=== PATIENT | female | born 1980 | race Caucasian/White ===

== ENCOUNTER 2020-07-19 09:51 | Emergency (ER) | payer OTHER ==
[~2020-07-19] VITALS: Ht 165.1 cm; Wt 55.0 kg
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
[2020-07-19 10:50] LABS: BASOPHILS % (AUTO) 1 % (0-1); EOSINOPHILS % (AUTO) 1 % (1-7); LYMPHOCYTES % (AUTO) 25 % (22-44); MEAN CORPUSCULAR HEMOGLOBIN 31.4 pg (27.0-34.8); MEAN CORPUSCULAR HGB CONC 34.4 g/dL (32.4-35.8); MEAN PLATELET VOLUME 8.1 fL (7.4-10.4); MONOCYTES % (AUTO) 6 % (2-9); NEUTROPHILS % (AUTO) 68 % (42-75); PLATELET COUNT 222 x10^3/uL (130-400); RED BLOOD COUNT 4.54 x10^6/uL (3.82-5.3)
[2020-07-19 10:51] LABS: MD NO
[2020-07-19 11:03] LABS: ALBUMIN 3.9 g/dL (3.4-5.0); CALCIUM 8.9 mg/dL (8.5-10.1); CREATININE 0.65 mg/dL (0.55-1.02)
[2020-07-19 11:09] LABS: ANION GAP 3 mmol/L (5-15); CHLORIDE 108 mmol/L (98-107)
[2020-07-19 11:44] VITALS: BP 122/65
[2020-07-19] MEDS ORDERED: ACETAMINOPHEN 325 MG TABLET PO ONE (12:00)
[2020-07-19] MEDS ORDERED: ACETAMINOPHEN 325 MG TABLET ONE (12:19)
== END 2020-07-19 13:27 | disposition home or self-care (01) ==
LOC: ED 10:38
DX: S09.90XA Unspecified injury of head, initial encounter (principal); R55 Syncope and collapse; G89.29 Other chronic pain; R94.31 Abnormal electrocardiogram [ECG] [EKG]; W18.30XA Fall on same level, unspecified, initial encounter; Y93.89 Activity, other specified; Y92.410 Unspecified street and highway as the place of occurrence of the external cause; Y99.8 Other external cause status
CPT/HCPCS: 36415; 70450; 80048; 82040; 85025; 93005; 99285

== ENCOUNTER 2020-07-24 04:34 | Emergency (ER) | payer OTHER ==
[~2020-07-24] VITALS: Ht 165.1 cm; Wt 53.7 kg
[2020-07-24 04:36] VITALS: BP 130/82
[2020-07-24] MEDS ORDERED: IBUPROFEN 200 MG TABLET ONE (05:25)
[2020-07-24] MEDS ORDERED: IBUPROFEN 200 MG TABLET PO ONE (05:30)
--- NOTE | 2020-07-24 05:56 | NUR ---
PT PROVIDED ICE PACK FOR HAND
== END 2020-07-24 06:49 | disposition home or self-care (01) ==
LOC: ED 05:30
DX: S63.522A Sprain of radiocarpal joint of left wrist, initial encounter (principal); Y04.8XXA Assault by other bodily force, initial encounter; Y93.89 Activity, other specified; Y92.009 Unspecified place in unspecified non-institutional (private) residence as the place of occurrence of the external cause; Y99.8 Other external cause status
CPT/HCPCS: 29125; 99283